=== PATIENT | female | born 1935 | race Caucasian/White ===

== ENCOUNTER 2018-06-04 12:11 | Emergency (ER) | payer MEDICARE, MEDICAID ==
[~2018-06-04] VITALS: Ht 165.1 cm; Wt 70.0 kg
[~2018-06-04 12:11] MED LIST: SINGULAIR; VALS40TA4
[2018-06-04 12:34] VITALS: BP 168/69
== END 2018-06-04 14:15 | disposition left against medical advice (07) ==
LOC: ER 14:03
DX: S69.81XA Other specified injuries of right wrist, hand and finger(s), initial encounter (principal); W45.8XXA Other foreign body or object entering through skin, initial encounter; Y93.89 Activity, other specified; Y92.89 Other specified places as the place of occurrence of the external cause; Y99.8 Other external cause status; Z53.21 Procedure and treatment not carried out due to patient leaving prior to being seen by health care provider

== ENCOUNTER 2020-10-19 16:55 | Inpatient (IN) | payer OTHER, MEDICAID ==
[~2020-10-19] VITALS: Ht 157.5 cm; Wt 66.2 kg
[2020-10-19 18:05] LABS: BASOPHILS % 0.1 % (0.0-2.0); EOSINOPHILS % 2.5 % (0.0-5.0); HEMATOCRIT. 39.6 % (36.0-48.0); HEMOGLOBIN. 12.8 g/dL (12.0-16.0); LYMPHOCYTES % 9.3 % (20.0-50.0); MEAN CORPUSCULAR HEMOGLOBIN 29.1 pg (28.0-32.0); MEAN CORPUSCULAR VOLUME 90.1 fL (81.0-99.0); MONOCYTES % 0.7 % (2.0-8.0); NEUTROPHILS % 87.4 % (40.0-76.0); PLATELET 169 x1000/uL (130-400)
[2020-10-19 18:06] LABS: CHLORIDE 105 mEq/L (98-107)
[2020-10-19 18:11] LABS: CLARITY URINE CLOUDY (CLEAR); COLOR URINE YELLOW (YELLOW); KETONES URINE TRACE (NEGATIVE); LEUKOCYTE ESTERASE URINE 1+ (NEGATIVE); NITRITE URINE POSITIVE (NEGATIVE); OCCULT BLOOD URINE 2+ (NEGATIVE); PROTEIN URINE 2+ (NEGATIVE); SPECIFIC GRAVITY URINE 1.033 (1.005-1.030)
[2020-10-19] MEDS ORDERED: CEFTRIAXONE 1 G PREMIX 50 ML IV ONE (18:45)
[2020-10-19] MEDS ORDERED: SODIUM CHLORIDE 0.9% 1,000 ML IV ONE (18:45)
[2020-10-20] VITALS (8 sets, daily range): BP systolic 84–96; BP diastolic 41–60
[2020-10-20] MEDS ORDERED: ACETAMINOPHEN 325MG TABLET PO PRN ×2 (01:30→04:45)
[2020-10-20] MEDS ORDERED: DEXT 5%/0.45% NACL KCL 40MEQ/L 1,000 ML IV SCH (04:45)
[2020-10-20] MEDS ORDERED: SODIUM CHLORIDE 0.9% 250 ML IV NR (05:00)
[2020-10-20] MEDS ORDERED: PIPERACILLIN/TAZ 3.375G PREMIX 50 ML IV SCH (06:00)
[2020-10-20] MEDS: DEXT 5%/0.45% NACL KCL 20MEQ/L 1,000 ML IV SCH ×2 (08:58→20:49)
[2020-10-20] MEDS: PANTOPRAZOLE 40MG DR TABLET PO SCH (08:58)
[2020-10-20] MEDS: PIPERACILLIN/TAZOBACTAM 3.375 G in DEXT 5% WATER 100 ML IV SCH ×3 (10:29→20:49)
[2020-10-20 10:40] LABS: HEMATOCRIT. 34.9 % (36.0-48.0); HEMOGLOBIN. 11.2 g/dL (12.0-16.0); MEAN CORPUSCULAR HEMOGLOBIN 28.7 pg (28.0-32.0); MEAN CORPUSCULAR VOLUME 89.7 fL (81.0-99.0); MEAN PLATELET VOLUME 9.7 fl (7.4-10.4); PLATELET 86 x1000/uL (130-400); RED CELL DISTRIBUTION WIDTH 14.9 % (11.6-14.6)
[2020-10-20 11:36] LABS: PLATELET ESTIMATE DECREASED
[2020-10-20] MEDS ORDERED: IPRATROPIUM/ALBUTEROL 0.5-3(2.5)MG/3ML NEB HHN PRN (14:45)
[2020-10-20] MEDS ORDERED: BISACODYL 10MG SUPP PR PRN (14:45)
[2020-10-20] MEDS ORDERED: HYDROCODONE/ACETAMINOPHEN 5/325MG TABLET PO PRN (14:45)
[2020-10-20] MEDS ORDERED: ONDANSETRON HCL 4MG/2ML INJ IV PRN (14:45)
[2020-10-20] MEDS ORDERED: POTASSIUM CHLORIDE 20MEQ TABLET SR PO NR (15:00)
[2020-10-20] MEDS ORDERED: HYDRALAZINE 20MG/ML VIAL IV PRN (15:00)
[2020-10-20 15:55] LABS: INR 1.3; PROTHROMBIN TIME 13.9 sec (9.6-11.0)
[2020-10-20 16:19] LABS: T4 FREE 1.34 ng/dL (0.76-1.46)
[2020-10-21 00:20] VITALS: BP 105/46
[2020-10-21] MEDS: PIPERACILLIN/TAZOBACTAM 3.375 G in DEXT 5% WATER 100 ML IV SCH ×2 (01:12→08:44)
[2020-10-21 04:30] VITALS: BP 110/57
[2020-10-21] MEDS: PANTOPRAZOLE 40MG DR TABLET PO SCH (06:04)
[2020-10-21 08:35] VITALS: BP 100/50
[2020-10-21 09:06] LABS: HEMOGLOBIN. 10.4 g/dL (12.0-16.0); MEAN CORPUSCULAR HEMOGLOBIN 28.8 pg (28.0-32.0); MEAN CORPUSCULAR VOLUME 88.7 fL (81.0-99.0); PLATELET 72 x1000/uL (130-400); RED BLOOD CELL COUNT 3.61 mill/uL (4.2-5.4); RED CELL DISTRIBUTION WIDTH 15.3 % (11.6-14.6)
[2020-10-21] MEDS ORDERED: LEVOFLOXACIN 500MG PREMIX 100 ML IV SCH ×2 (10:00→12:00)
[2020-10-21] MEDS: DEXT 5%/0.45% NACL KCL 20MEQ/L 1,000 ML IV SCH ×2 (10:46→22:03)
[2020-10-21 12:00] VITALS: BP 136/52
[2020-10-21] MEDS ORDERED: GENTAMICIN 120MG PREMIX 100 ML IV SCH (12:00)
[2020-10-21 13:55] LABS: PLATELET ESTIMATE DECREASED
[2020-10-21] MEDS: METRONIDAZOLE 500 MG PREMIX 100 ML IV SCH ×2 (14:43→21:18)
[2020-10-21 16:00] VITALS: BP 118/64
[2020-10-21] MEDS: MEROPENEM 1,000 MG in SODIUM CHLORIDE 0.9% 100 ML IV SCH (17:55)
[2020-10-21 20:00] VITALS: BP 144/65
[2020-10-21] MEDS ORDERED: AMLO2.5T45 MT (21:37)
[2020-10-21] MEDS ORDERED: ATOR10TA69 MT (21:37)
[2020-10-21] MEDS ORDERED: DONE10TA43 MT (21:37)
[2020-10-21] MEDS ORDERED: MEMA10TA2 MT (21:37)
[2020-10-22 00:26] VITALS: BP 134/63
[2020-10-22 04:30] VITALS: BP 164/63
[2020-10-22] MEDS: METRONIDAZOLE 500 MG PREMIX 100 ML IV SCH ×3 (05:41→21:20)
[2020-10-22] MEDS: MEROPENEM 1,000 MG in SODIUM CHLORIDE 0.9% 100 ML IV SCH ×2 (06:24→18:09)
[2020-10-22] MEDS: PANTOPRAZOLE 40MG DR TABLET PO SCH (06:24)
[2020-10-22] MEDS: LORAZEPAM 2MG/ML CPJ IV PRN ×2 (06:56→16:26)
[2020-10-22 08:00] VITALS: BP 183/54
[2020-10-22 09:18] VITALS: BP 183/54
[2020-10-22] MEDS ORDERED: LEVOFLOXACIN 250MG PREMIX 50 ML IV SCH (11:00)
[2020-10-22] MEDS: AMLODIPINE 5MG TABLET PO SCH (11:48)
[2020-10-22] MEDS: DEXT 5%/0.45% NACL KCL 20MEQ/L 1,000 ML IV SCH (11:48)
[2020-10-22 12:00] VITALS: BP 156/84
[2020-10-22] MEDS ORDERED: SODIUM BICARBONATE 4% (2.4MEQ) 5ML VIAL IV ONE (14:24)
[2020-10-22] MEDS ORDERED: LIDOCAINE HCL 1% 20ML VIAL (Pyxis) INJ ONE (14:24)
[2020-10-22] MEDS: HYDRALAZINE HCL 50MG TABLET PO SCH ×2 (15:34→21:20)
[2020-10-22 16:46] LABS: HEMATOCRIT. 35.7 % (36.0-48.0); HEMOGLOBIN. 11.7 g/dL (12.0-16.0); MEAN CORPUSCULAR HEMOGLOBIN 28.7 pg (28.0-32.0); MEAN CORPUSCULAR VOLUME 87.7 fL (81.0-99.0); MEAN PLATELET VOLUME 10.2 fl (7.4-10.4); PLATELET 100 x1000/uL (130-400); RED BLOOD CELL COUNT 4.07 mill/uL (4.2-5.4); RED CELL DISTRIBUTION WIDTH 14.7 % (11.6-14.6)
[2020-10-22 17:11] LABS: CHLORIDE 113 mEq/L (98-107)
[2020-10-22 17:40] LABS: PLATELET ESTIMATE DECREASED
[2020-10-22 20:00] VITALS: BP 163/138
[2020-10-23] VITALS: BP 162/78
[2020-10-23] MEDS ORDERED: HALOPERIDOL LACTATE 5MG/ML VIAL IM SCH (00:30)
[2020-10-23] MEDS: MEROPENEM 1,000 MG in SODIUM CHLORIDE 0.9% 100 ML IV SCH (06:00)
[2020-10-23] MEDS: METRONIDAZOLE 500 MG PREMIX 100 ML IV SCH ×3 (06:00→21:10)
[2020-10-23] MEDS: HYDRALAZINE HCL 50MG TABLET PO SCH ×3 (06:00→21:10)
[2020-10-23 06:05] LABS: BASOPHILS % 0.5 % (0.0-2.0); EOSINOPHILS % 1.5 % (0.0-5.0); HEMATOCRIT. 37.3 % (36.0-48.0); HEMOGLOBIN. 12.5 g/dL (12.0-16.0); LYMPHOCYTES % 8.8 % (20.0-50.0); MEAN CORPUSCULAR HEMOGLOBIN 29.4 pg (28.0-32.0); MEAN CORPUSCULAR VOLUME 87.8 fL (81.0-99.0); MONOCYTES % 7.4 % (2.0-8.0); NEUTROPHILS % 81.8 % (40.0-76.0); RED BLOOD CELL COUNT 4.24 mill/uL (4.2-5.4); RED CELL DISTRIBUTION WIDTH 14.8 % (11.6-14.6)
[2020-10-23 06:32] LABS: CHLORIDE 113 mEq/L (98-107)
[2020-10-23 08:09] VITALS: BP 136/58
[2020-10-23] MEDS: AMLODIPINE 5MG TABLET PO SCH (08:27)
[2020-10-23] MEDS: PANTOPRAZOLE 40MG DR TABLET PO SCH (08:28)
[2020-10-23 12:08] VITALS: BP 127/63
[2020-10-23] MEDS: DEXT 5%/0.45% NACL KCL 20MEQ/L 1,000 ML IV SCH ×2 (15:10→15:15)
[2020-10-23 16:04] LABS: MEAN PLATELET VOLUME 10.3 fl (7.4-10.4); PLATELET 111 x1000/uL (130-400)
[2020-10-23 16:08] VITALS: BP 134/63
[2020-10-23] MEDS: CEFTRIAXONE 1,000 MG in DEXTROSE 5% WATER 50 ML IV SCH (18:22)
[2020-10-23 20:00] VITALS: BP 116/54
[2020-10-24] VITALS: BP 135/91
[2020-10-24 04:00] VITALS: BP 111/49
[2020-10-24] MEDS: DEXT 5%/0.45% NACL KCL 20MEQ/L 1,000 ML IV SCH ×2 (05:07→17:52)
[2020-10-24] MEDS: METRONIDAZOLE 500 MG PREMIX 100 ML IV SCH ×3 (05:07→21:17)
[2020-10-24 06:01] LABS: HEMATOCRIT. 30.4 % (36.0-48.0); HEMOGLOBIN. 10.2 g/dL (12.0-16.0); MEAN CORPUSCULAR HEMOGLOBIN 29.5 pg (28.0-32.0); MEAN CORPUSCULAR VOLUME 87.9 fL (81.0-99.0); PLATELET 106 x1000/uL (130-400); RED BLOOD CELL COUNT 3.46 mill/uL (4.2-5.4); RED CELL DISTRIBUTION WIDTH 14.7 % (11.6-14.6)
[2020-10-24 06:14] LABS: CHLORIDE 114 mEq/L (98-107)
[2020-10-24] MEDS: PANTOPRAZOLE 40MG DR TABLET PO SCH (06:38)
[2020-10-24] MEDS: HYDRALAZINE HCL 50MG TABLET PO SCH ×3 (06:38→21:17)
[2020-10-24 08:13] VITALS: BP 110/46
[2020-10-24] MEDS: AMLODIPINE 5MG TABLET PO SCH (10:01)
[2020-10-24 12:06] VITALS: BP 104/46
[2020-10-24 14:22] LABS: PLATELET ESTIMATE DECREASED
[2020-10-24 16:38] VITALS: BP 106/47
[2020-10-24] MEDS: CEFTRIAXONE 1,000 MG in DEXTROSE 5% WATER 50 ML IV SCH (17:52)
[2020-10-24 20:00] VITALS: BP 120/48
[2020-10-25] VITALS: BP 98/38
[2020-10-25 04:00] VITALS: BP 139/58
[2020-10-25] MEDS: HYDRALAZINE HCL 50MG TABLET PO SCH ×2 (06:00→15:23)
[2020-10-25] MEDS: PANTOPRAZOLE 40MG DR TABLET PO SCH (06:29)
[2020-10-25] MEDS: METRONIDAZOLE 500 MG PREMIX 100 ML IV SCH ×2 (06:29→15:23)
[2020-10-25] MEDS: DEXT 5%/0.45% NACL KCL 20MEQ/L 1,000 ML IV SCH (06:30)
[2020-10-25] MEDS: AMLODIPINE 5MG TABLET PO SCH (09:09)
[2020-10-25 18:01] VITALS: BP 145/56
== END 2020-10-25 18:28 | disposition hospice, home (50) | DRG 871 ==
LOC: ER 16:55 → 6EST 22:41 → EDBEDREQSVC 22:49 → EDBEDREQTM 22:49 → EDBEDREQ 22:49 → CANRESERV 23:48 → ENRESERV 23:48 → 6WST 10-20 07:24
PROVIDERS: ADMIT Internal Medicine; ATTEND Internal Medicine
PROC: 02HV33Z Insertion of Infusion Device into Superior Vena Cava, Percutaneous Approach (ICD-10-PCS; principal; 2020-10-18)
PROC: B548ZZA Ultrasonography of Superior Vena Cava, Guidance (ICD-10-PCS; 2020-10-18)
DX: A41.9 Sepsis, unspecified organism (principal); G93.41 Metabolic encephalopathy; N39.0 Urinary tract infection, site not specified; E87.2 Acidosis; E87.6 Hypokalemia; Z51.5 Encounter for palliative care; I10 Essential (primary) hypertension; F03.90 Unspecified dementia, unspecified severity, without behavioral disturbance, psychotic disturbance, mood disturbance, and anxiety; E86.0 Dehydration; D69.6 Thrombocytopenia, unspecified; N28.1 Cyst of kidney, acquired; B96.20 Unspecified Escherichia coli [E. coli] as the cause of diseases classified elsewhere; Z20.822 Contact with and (suspected) exposure to COVID-19; E78.00 Pure hypercholesterolemia, unspecified; E78.5 Hyperlipidemia, unspecified; J45.909 Unspecified asthma, uncomplicated; Z79.899 Other long term (current) drug therapy
CPT/HCPCS: 36415; 71045; 74176; 76770; 76937; 80048; 80053; 80061; 81003; 83036; 83605; 84145; 84439; 84443; 84484; 85025; 87077; 87186; 87426; 93005; 93306; 93970; 97162; 97530; 99285; C1725; J0360; J0696; J1580; J1630; J1956; J2060; J2185; J2405; J2543; J3490; J7030; J7050; J7060